=== PATIENT | female | born 1950 | race Caucasian/White ===

== ENCOUNTER 2018-02-22 07:50 | Day surgery (SDC) ==
[2013-05-24 16:29] VITALS: BMI 37.1
[2018-02-22] MEDS: TETRACAINE 0.5% UNIT-DOSE OP PRN ×2 (08:00→08:31)
[2018-02-22] MEDS: BETADINE OPTH PREP OP PRN ×2 (08:00→08:30)
[2018-02-22] MEDS: CYCLOGYL 2% OPTH OP PRN ×4 (08:01→08:16)
[2018-02-22] MEDS ORDERED: BSS WITH EPINEPHRINE OP ONE (08:13)
[2018-02-22] MEDS ORDERED: LIDOCAINE 1% 20 ML MDV ID STA (08:13)
[2018-02-22] MEDS ORDERED: LIDOCAINE 1%/PHENYLEPHRINE 1.5% BSS (SURGERY) INTRAOCULA ONE (08:13)
[2018-02-22] MEDS ORDERED: BRIMONIDINE TARTRATE 0.2% OPTH SOL OP PRN (08:13)
[2018-02-22] MEDS ORDERED: DEX-MOXI-KETOR OPTH INJ 1/0.5/0.4 MG/ML IO ONE (08:13)
[2018-02-22] MEDS ORDERED: ZOFRAN 4 MG/2 ML IVP ONE (08:13)
[2018-02-22 08:23] VITALS: TEMP 97.4
[2018-02-22] MEDS ORDERED: VERSED ONE (08:40)
[2018-02-22] MEDS ORDERED: ZOFRAN 4 MG/2 ML ONE (08:40)
[2018-02-22 11:59] VITALS: BP 121/67
== END 2018-02-22 09:35 | disposition home or self-care (01) ==
LOC: SURG 07:50
PROVIDERS: ATTEND Ophthalmology
DX: H25.811 Combined forms of age-related cataract, right eye (principal)

== ENCOUNTER 2018-03-08 06:40 | Day surgery (SDC) | payer OTHER ==
[2013-05-24 16:29] VITALS: BMI 37.1
[2018-03-08] MEDS: TETRACAINE 0.5% UNIT-DOSE OP PRN ×2 (06:55→07:51)
[2018-03-08] MEDS: BETADINE OPTH PREP OP PRN ×2 (06:55→07:51)
[2018-03-08] MEDS: CYCLOGYL 2% OPTH OP PRN ×3 (06:56→07:06)
[2018-03-08] MEDS ORDERED: ZOFRAN 4 MG/2 ML IVP ONE (07:06)
[2018-03-08] MEDS ORDERED: BRIMONIDINE TARTRATE 0.2% OPTH SOL OP PRN (07:06)
[2018-03-08] MEDS ORDERED: LIDOCAINE 1% 20 ML MDV ID STA (07:06)
[2018-03-08] MEDS: LIDOCAINE 1%/PHENYLEPHRINE 1.5% BSS (SURGERY) INTRAOCULA ONE ×2 (07:52→08:00)
[2018-03-08] MEDS: DEX-MOXI-KETOR OPTH INJ 1/0.5/0.4 MG/ML IO ONE ×2 (07:52→08:00)
[2018-03-08] MEDS: BSS WITH EPINEPHRINE OP ONE ×2 (07:52→08:00)
[2018-03-08] MEDS ORDERED: DIPRIVAN 20 ML VIAL IVP ONE (07:58)
[2018-03-08] MEDS ORDERED: VERSED ONE (07:58)
[2018-03-08] MEDS ORDERED: ZOFRAN 4 MG/2 ML ONE (07:58)
[2018-03-08 12:05] VITALS: TEMP 98.4
[2018-03-08 15:13] VITALS: BP 121/76
== END 2018-03-08 09:00 | disposition home or self-care (01) ==
LOC: SURG 06:40
PROVIDERS: ATTEND Ophthalmology
DX: H25.812 Combined forms of age-related cataract, left eye (principal)